=== PATIENT | female | born 1980 | race Caucasian/White ===

== ENCOUNTER 2019-10-06 11:07 | Emergency (ER) | payer BC, SELFPAY ==
--- NOTE | ~2019-10-06 | XR_ITS ---
EXAMINATION: XR chest 1V portable DATE: 10/06/2019 11:56 INDICATION: Midsternal chest pain. Cough and shortness of breath. TECHNIQUE: A single frontal view of the chest was obtained. COMPARISON: None. FINDINGS: The chest demonstrates clear lungs without pneumonia, pleural effusion, or pneumothorax. Th e heart size is normal. IMPRESSION: 1. No acute cardiopulmonary disease. Reviewed, dictated and finalized at location A.
--- NOTE | 2019-10-06 11:10 | ED.CHESTPAIN ---
HPI - Chest Pain General Chief Complaint: Chest Pain Stated Complaint: Chest Pains Time Seen by Provider: 10/06/19 11:10 Source: patient and RN notes reviewed Mode of arrival: ambulatory Limitations: no limitations History of Present Illness HPI narrative: patient presents with 3 days of tachycardia. She states she has a history of tachycardia and was on medication in the past but did not think that it worked and also made her fatigued. She has been having some dull chest pain. No associated symptoms. Her daughter has been tested positive for COVID. She thinks she may have a also she has been having headache and feeling more fatigued. She denies having any loss of sense of smell or taste. She denies any cough. She states she has had a low-grade fever to 100. MD complaint: chest discomfort Pertinent past history: other (Tachycardia) Onset (ago): day(s) (3) Timing of current episode: constant and increasing Prior episodes: Yes Onset: during rest Pain location: substernal Pain radiation: none Severity: moderate Quality: dull Relieving factors: nothing Exacerbating factors: exertion Context: non compliance with medication Associated symptoms: dyspnea Treatment prior to arrival: none Risk Factors Coronary artery disease risk factors: none Thoracic aortic dissection risk factors: none Related Data Allergies Allergy/AdvReac Type Severity Reaction Status Date / Time No Known Allergies Allergy Verified 10/06/19 11:24 Review of Systems Constitutional: Constitutional: Reports as per HPI, Denies chills and Denies fever(s) Eyes: Eyes: Reports no additional eye complaints ENT: Reports system reviewed and no additional complaints, except as documented Cardiovascular: Cardiovascular: Reports as per HPI Respiratory: Respiratory: Reports as per HPI Gastrointestinal: Gastrointestinal: Reports no additional gastrointestinal complaints Musculoskeletal: Musculoskeletal: Reports no additional musculoskeletal complaints Neurologic: Reports system reviewed and no additional complaints, except as documented Psychiatric: Psychiatric: Reports no additional psychiatric complaints Endocrine: Endocrine: Reports no additional endocrine complaints Hematologic/Lymphatic: Hematologic/Lymphatic: Reports no additional hematologic/lymphatic complaints PMFSH Past Medical History Medical History (Updated 10/06/19 @ 12:40 by Virgilio Serrato MD) Tachycardia Surgical History Surgical History (Updated 10/06/19 @ 11:41 by Virgilio Serrato MD) H/O hand surgery History of appendectomy Exam Const: General: healthy appearing, no acute distress and alert Nutritional Appearance: well nourished Orientation/consciousness: patient oriented x3 HENMT: Head: normal to inspection Ears: external ears normal General nose exam: Normal external nose present Face and sinus: normal facial exam Eyes: Conjunctivae: conjunctivae normal Pupils: Equal, round and reactive pupils present EOM: EOMs intact bilaterally Neck: Neck: normal visual inspection Resp: Effort & Inspection: normal respiratory effort Auscultation: clear to auscultation bilaterally Cardio: Rate: tachycardic Rhythm: regular rhythm Heart sounds: no murmurs GI: Auscultation: normal bowel sounds Back/Spine/Pelvis: Cervical Spine: cervical ROM normal Thoracic/Lumbar Spine: thoraco-lumbar ROM normal Skin: General skin exam: normal color Rashes: no rashes Neuro: General: patient oriented x3, moves all extremities, no meningeal signs and no focal motor deficits Speech: normal speech Gait exam (Neuro): Normal gait present Extrem: General: normal to inspection and no pedal edema Psych: Appearance: grossly normal and well kempt Mental Status: mental status grossly normal Affect: normal affect Thought content: Yes Normal thought content present Course Course Emergency Course: Patient examined in negative pressure room with full PPE. her heart rate was in the 140s at ti
--- NOTE | 2019-10-06 11:13 | ECG_ITS ---
Measurements Intervals [place] Rate: 124 P: 74 HI: 151 QRS: 69 QRSD: 86 T: 48 QT: 287 QTc: 413 Interpretive Statements SINUS TACHYCARDIA BORDERLINE ST ABNORMALITY- INF/LAT LEADS ABNORMAL ECG Electronically Signed On 10-06-2019 12:13:12 CDT by Kwame Gama D.O.
[2019-10-06 11:25] VITALS: BP 152/86; PULSE 123; PULSE 124; RESP 16; TEMP 37.3; O2SAT 100
[2019-10-06 11:40] LABS: Basophils Absolute Auto 0.06 K/mm3 (0.00-0.10); Basophils Percent Auto 0.8 % (0.0-1.0); Eosinophils Absolute Auto 0.04 K/mm3 (0.02-0.50); Eosinophils Percent Auto 0.5 % (1.0-6.0); Hemoglobin 15.3 g/dL (12.0-15.0); Immature Granulocyte Absolute 0.02 K/mm3 (0.00-0.00); Immature Granulocyte Percent A 0.3 % (0.0-0.0); Lymphocytes Percent Auto 37.9 % (18.0-42.0); Mean Corpuscular Hemoglobin 34.2 pg (27.0-31.0); Mean Corpuscular Volume 100.7 fL (78.0-102.0); Mean Platelet Volume 8.4 fl (9.2-11.8); Monocytes Absolute Auto 1.01 K/mm3 (0.10-0.90); Monocytes Percent Auto 13.2 % (2.0-11.0); Neutrophils Absolute Auto 3.6 K/mm3 (1.7-7.2); Neutrophils Percent Auto 47.3 % (50.0-70.0); Platelet Count Result 414 K/mm3 (150-420); Red Blood Count 4.47 M/mm3 (4.20-5.40); Red Cell Distribution Width 11.4 % (11.6-14.4); White Blood Count 7.7 K/mm3 (4.8-10.8)
[2019-10-06] MEDS: hydrALAZINE HCL 20 MG/ML VIAL 10 MG IV PUSH (11:43)
[2019-10-06 11:53] LABS: Prothrombin Time 10.5 Seconds (9.64-11.0)
[2019-10-06 11:56] VITALS: BP 146/85; PULSE 115
[2019-10-06 12:04] LABS: Alanine Aminotransferase 20 U/L (14-59); Albumin Level 3.9 g/dL (3.4-5.0); Alkaline Phosphatase 55 U/L (46-116); Anion Gap 9 mmol/L (8-16); Aspartate Amino Transferase 15 U/L (15-37); Bilirubin,Total 0.6 mg/dL (0.00-1.00); Blood Urea Nitrogen 10 mg/dL (7-18); Carbon Dioxide 27 mmol/L (21-32); Chloride 101 mmol/L (98-108); Estimated Glomerular Filt Rate > 60; Glucose 97 mg/dL (70-99); Osmolality Calculated 283 mOsm/kg (285-295); Sodium 137 mmol/L (136-145); Thyroid Stimulating Hormone 0.91 uIU/mL (0.36-3.74); Total Protein 7.5 g/dL (6.4-8.2)
[2019-10-06 12:05] LABS: CRP 0.3 mg/dL (0.0-0.9); Troponin I < 0.02 ng/mL (0.00-0.056)
[2019-10-06 12:56] VITALS: BP 126/89; PULSE 109; RESP 20; O2SAT 98
[2019-10-07 14:22] LABS: SARS-CoV-2 RNA PCR Negative
== END 2019-10-06 13:00 | disposition home or self-care (01) ==
PROVIDERS: Emergency Provider Emergency Medicine; PCP Physician Assistant
DX: R00.0 Tachycardia, unspecified (principal); J06.9 Acute upper respiratory infection, unspecified; Z20.828 Contact with and (suspected) exposure to other viral communicable diseases
CPT/HCPCS: 36415; 71045; 80053; 83735; 84443; 84484; 85025; 85610; 86140; 87635; 93005; 96374; 99284; C9803; J0360; U0003

== ENCOUNTER 2020-03-31 07:22 | Outpatient (CLI) | payer BC, SELFPAY ==
[2020-03-31 07:37] LABS: Basophils Percent Auto 1.2 % (0.0-1.0); Eosinophils Percent Auto 1.2 % (1.0-6.0); Hemoglobin 14.3 g/dL (12.0-15.0); Immature Granulocyte Absolute 0.03 K/mm3 (0.00-0.00); Immature Granulocyte Percent A 0.4 % (0.0-0.0); Lymphocytes Absolute Auto 3.01 K/mm3 (1.10-4.50); Lymphocytes Percent Auto 37.4 % (18.0-42.0); Mean Corpuscular Hemoglobin 34.1 pg (27.0-31.0); Mean Corpuscular Volume 100.2 fL (78.0-102.0); Mean Platelet Volume 8.3 fl (9.2-11.8); Monocytes Absolute Auto 1.08 K/mm3 (0.10-0.90); Monocytes Percent Auto 13.4 % (2.0-11.0); Neutrophils Absolute Auto 3.7 K/mm3 (1.7-7.2); Neutrophils Percent Auto 46.4 % (50.0-70.0); Platelet Count Result 414 K/mm3 (150-420); Red Blood Count 4.19 M/mm3 (4.20-5.40); Red Cell Distribution Width 11.7 % (11.6-14.4); White Blood Count 8.1 K/mm3 (4.8-10.8)
[2020-03-31 07:49] LABS: Hemoglobin A1C < 4.7 % (<5.7)
[2020-03-31 09:17] LABS: Alanine Aminotransferase 21 U/L (14-59); Albumin Level 4.3 g/dL (3.4-5.0); Alkaline Phosphatase 50 U/L (46-116); Anion Gap 12 mmol/L (8-16); Aspartate Amino Transferase 16 U/L (15-37); Bilirubin,Total 0.5 mg/dL (0.00-1.00); Blood Urea Nitrogen 12 mg/dL (7-18); Calcium 9.6 mg/dL (8.5-10.1); Carbon Dioxide 26 mmol/L (21-32); Chloride 101 mmol/L (98-108); Cholesterol 224 mg/dL (0-200); Estimated Glomerular Filt Rate > 60; Glucose 86 mg/dL (70-99); HDL Direct 77 mg/dL (40-60); LDL Cholesterol Calculated 131 mg/dL (<130); Osmolality Calculated 286 mOsm/kg (285-295); Potassium 4.5 mmol/L (3.5-5.1); Sodium 139 mmol/L (136-145); Total Protein 7.4 g/dL (6.4-8.2); Triglycerides 81 mg/dL (0-150); Vitamin B12 315 pg/mL (193-986)
[2020-03-31 09:20] LABS: Folic Acid > 20.0 ng/mL (8.6->20); Thyroid Stimulating Hormone Reflex 1.18 u/IU/mL (0.36-3.74)
[2020-04-02 07:32] LABS: FSH 8.5 mIU/mL (***); LH 9.6 mIU/mL (***); Progesterone 5.2 ng/mL (***)
[2020-04-02 11:34] LABS: Vitamin D 25 Hydroxy 15 ng/mL (30-100)
[2020-04-02 23:27] LABS: CRP, High Sensitivity 1.8 mg/L (***)
[2020-04-05 17:48] LABS: Estradiol, Ultrasensitive 98 pg/mL
== END 2020-03-31 07:23 | disposition home or self-care (01) ==
LOC: CHSLAB 07:26
PROVIDERS: PCP Physician Assistant; Visit Provider Obstetrics & Gynecology
DX: N94.3 Premenstrual tension syndrome (principal)
CPT/HCPCS: 36415; 80053; 80061; 82306; 82607; 82670; 82746; 83001; 83002; 83036; 84144; 84443; 85025; 86038; 86141

== ENCOUNTER 2022-02-17 15:17 | Outpatient (CLI) | payer BC, SELFPAY ==
--- NOTE | ~2022-02-17 | XR_ITS ---
XR elbow RT min 3V DATE: 02/17/2022 15:31 INDICATION: Right elbow joint pain TECHNIQUE: 4 views COMPARISON: None FINDINGS: No fracture or dislocation or joint effusion. No periosteal reaction or bone destruction. J oint spaces are preserved. IMPRESSION: Negative Reviewed, dictated and finalized at location A. [facility] IMPRESSION: Negative
== END 2022-02-17 15:18 | disposition home or self-care (01) ==
LOC: CHSIMG 15:19
PROVIDERS: PCP Physician Assistant; Visit Provider Physician Assistant
DX: M25.521 Pain in right elbow (principal)
CPT/HCPCS: 73080